=== PATIENT | female | born 1970 | race Two or more races ===

== ENCOUNTER 2023-08-20 18:37 | Emergency (ER) | payer OTHER ==
[~2023-08-20] VITALS: Ht 162.6 cm; Wt 60.3 kg
[2023-08-20] MEDS ORDERED: SYNTHROID112 MCG PO (19:23)
[2023-08-20 20:52] LABS: HEMATOCRIT 36.8 % (36.0-45.00); HEMOGLOBIN 12.8 g/dL (12.0-15.00); MEAN CELL VOLUME 86.3 fL (80.00-100.00); MEAN CORPUSCULAR HGB CONC 34.7 g/dl (32.0-36.0); PLATELET COUNT 228 K/uL (150-450); RED BLOOD COUNT 4.26 M/uL (4.00-6.00); RED CELL DISTRIBUTION WIDTH 12.6 % (11.5-14.5)
[2023-08-20 21:26] LABS: ALBUMIN 3.2 gm/dL (3.4-5.0); BILIRUBIN TOTAL 1.2 mg/dL (0.3-1.2); CALCIUM 8.8 mg/dL (8.5-10.1); CREATININE SERUM 0.74 mg/dL (0.55-1.02); GFR 81.48; POTASSIUM 3.79 mEq/L (3.5-5.1); TOTAL PROTEIN 7.2 gm/dL (6.4-8.2)
[2023-08-21] MEDS ORDERED: ONDANSETRON ODT4 MG PO (08:24)
[2023-08-21] MEDS ORDERED: MIRALAX17 GM PO (08:24)
== END 2023-08-21 09:33 ==
LOC: ER 18:37
PROVIDERS: General Practice
DX: K59.00 Constipation, unspecified (principal); Z88.0 Allergy status to penicillin; Z88.6 Allergy status to analgesic agent